=== PATIENT | male | born 1960 | race Caucasian/White ===

== ENCOUNTER 2018-12-14 04:32 | Inpatient (IN) | payer OTHER, MEDICAID ==
[2018-12-14 05:04] LABS: ADD MAN DIFF? NO
[2018-12-14 05:06] LABS: WHITE BLOOD COUNT 19.2 10^3/ul (4.8-10.8)
[2018-12-14 05:06] LABS: ABNORMAL IP MESSAGE 1; BASOPHIL # 0.1 10^3/ul (0.0-0.1); BASOPHILS % 0.4 % (0.0-2.0); EOSINOPHILS # 0.1 10^3/ul (0.0-0.5); EOSINOPHILS % 0.6 % (0.0-7.0); HEMATOCRIT 21.8 % (42.0-52.0); HEMOGLOBIN 7.3 g/dl (14.0-18.0); LYMPHOCYTES # 4.7 10^3/ul (0.8-2.9); LYMPHOCYTES % 24.4 % (15.0-51.0); MEAN CORPUSCULAR HEMOGLOBIN 32.6 pg (29.0-33.0); MEAN CORPUSCULAR HGB CONC 33.5 g/dl (32.0-37.0); MEAN CORPUSCULAR VOLUME 97.3 fl (82.0-101.0); MEAN PLATELET VOLUME 12.6 fl (7.4-10.4); MONOCYTE # 1.8 10^3/ul (0.3-0.9); MONOCYTES % 9.5 % (0.0-11.0); NEUTROPHIL # 12.3 10^3/ul (1.6-7.5); NEUTROPHILS % 64.1 % (39.0-77.0); PLATELET COUNT 73 10^3/UL (140-415); POSITIVE DIFF @See below; RED BLOOD COUNT 2.24 10^6/ul (4.70-6.10); RED CELL DISTRIBUTION WIDTH 17.2 % (11.5-14.5)
[2018-12-14] MEDS: CEFTRIAXONE 1 GM/50 ML (PMX) 50 ML IVPB (05:07)
[2018-12-14] MEDS: SOD CHLORIDE 0.9% 500 ML IV (05:07)
[2018-12-14 05:23] LABS: ALANINE AMINOTRANSFERASE 40 IU/L (13-69); ALBUMIN 2.7 g/dl (3.3-4.9); ALBUMIN/GLOBULIN RATIO 0.87; ALKALINE PHOSPHATASE 85 IU/L (42-121); ANION GAP 13 (5-13); ASPARTATE AMINO TRANSFERASE 55 IU/L (15-46); BILIRUBIN,INDIRECT 4.5 mg/dl (0-1.1); BILIRUBIN,TOTAL 4.5 mg/dl (0.2-1.3); BLOOD UREA NITROGEN 25 mg/dl (7-20); CALCIUM 8.4 mg/dl (8.4-10.2); CARBON DIOXIDE 18 mmol/L (21-31); CHLORIDE 113 mmol/L (97-110); CREATININE 0.89 mg/dl (0.61-1.24); Estimated GFR > 60 mL/min (>60); GLUCOSE 124 mg/dl (70-220); POTASSIUM 3.3 mmol/L (3.5-5.1); SODIUM 144 mmol/L (135-144); TOTAL PROTEIN 5.8 g/dl (6.1-8.1)
[2018-12-14 05:25] LABS: INR 2.52; PROTIME 27.2 Sec (11.9-14.9); PT RATIO 2.1
[2018-12-14 05:26] LABS: PARTIAL THROMBOPLASTIN TIME 43.8 Sec (23.0-35.0)
[2018-12-14] MEDS: PHYTONADIONE 10 MG in DEXTROSE 5% 50 ML IVPB (05:30)
[2018-12-14] MEDS ORDERED: ACETAMINOPHEN 325 MG TAB PO (05:30)
[2018-12-14] MEDS ORDERED: PANTOPRAZOLE IV 80 MG in SOD CHLORIDE 0.9% 100 ML IV (05:30)
[2018-12-14 05:35] LABS: TROPONIN-I 0.072 ng/ml (0.000-0.120)
[2018-12-14] MEDS: OCTREOTIDE 50 MCG in SOD CHLORIDE 0.9% 25 ML IVPB (05:49)
[2018-12-14] MEDS: PANTOPRAZOLE IV 80 MG in SOD CHLORIDE 0.9% 100 ML IVPB (05:49)
[2018-12-14] MEDS: ONDANSETRON 4 MG INJ IV (06:02)
[2018-12-14] MEDS: PANTOPRAZOLE IV 80 MG in SOD CHLORIDE 0.9% 100 ML IV (06:11)
[2018-12-14] MEDS: OCTREOTIDE 500 MCG in SOD CHLORIDE 0.9% 49 ML IV (06:12)
[2018-12-14 06:28] LABS: HAAIG REFLEX REFLEX FILED
[2018-12-14 06:37] LABS: ETHANOL < 10.0 mg/dl (0-0)
[2018-12-14 07:35] LABS: HEPATITIS B SURFACE ANTIBODY NEGATIVE (NEGATIVE)
[2018-12-14 08:44] LABS: HEPATITIS B SURFACE ANTIGEN NEGATIVE (NEGATIVE)
[2018-12-14 08:47] LABS: ABNORMAL IP MESSAGE 1; HEMATOCRIT 18.8 % (42.0-52.0); MEAN CORPUSCULAR HGB CONC 33.5 g/dl (32.0-37.0); MEAN CORPUSCULAR VOLUME 95.4 fl (82.0-101.0); POSITIVE DIFF @See below; RED BLOOD COUNT 1.97 10^6/ul (4.70-6.10); RED CELL DISTRIBUTION WIDTH 17.3 % (11.5-14.5)
[2018-12-14 09:01] LABS: HEPATITIS C VIRAL ANTIBODY NEGATIVE (NEGATIVE)
[2018-12-14 09:17] LABS: ADD MAN DIFF? YES; HEMOGLOBIN 6.3 g/dl (14.0-18.0); PLATELET COUNT 33 10^3/UL (140-415)
[2018-12-14 09:18] LABS: PATH REVIEW? YES
[2018-12-14 09:49] LABS: ANISOCYTOSIS 1+ (0-0); BAND NEUTROPHILS #M 0.4 10^3/ul (0.0-0.6); BAND NEUTROPHILS % (M) 4 % (0-4); GIANT THROMBO% (M) 1 % (0-0); LYMPHOCYTES #M 0.2 10^3/ul (0.8-2.9); LYMPHOCYTES % (M) 2 % (15-51); MONOCYTE #M 0.7 10^3/ul (0.3-0.9); MONOCYTES % (M) 6 % (0-11); MYELOCYTES #M 0.1 10^3/ul (0.0-0.0); MYELOCYTES % (M) 1 % (0-0); PLATELET ESTIMATE DECREASED; PLATELET MORPHOLOGY COMMENT @See below; POLYCHROMASIA 1+ (0-0); SEG NEUT #M 10.4 10^3/ul (1.6-7.5); SEGMENTED NEUTROPHILS (M) % 87 % (39-77); SMUDGE%M 10 % (0-0)
[2018-12-14 10:05] LABS: HEPATITIS B CORE ANTIBODY NEGATIVE (NEGATIVE)
[2018-12-14] MEDS: PROPOFOL 20 ML (12:17)
[2018-12-14] MEDS: LIDOCAINE 2% (SDV) 5 ML INJ (12:17)
[2018-12-14] MEDS ORDERED: FENTAnyl 50 MCG/ML VIAL IV (12:30)
[2018-12-14] MEDS ORDERED: DIPHENHYDRAMINE 50 MG INJ IV (12:30)
[2018-12-14] MEDS ORDERED: ACETAMINOPHEN 500 MG TAB PO (12:30)
[2018-12-14] MEDS ORDERED: LABETALOL HCL 20MG INJ IV (12:30)
[2018-12-14] MEDS ORDERED: ALBUTEROL 0.083% (NEB) 2.5 MG/3 ML AMP HHN (12:30)
[2018-12-14] MEDS ORDERED: ONDANSETRON 4 MG INJ IV (12:30)
[2018-12-14 15:49] LABS: WHITE BLOOD COUNT 8.7 10^3/ul (4.8-10.8)
[2018-12-14 15:50] LABS: ABNORMAL IP MESSAGE 1; HEMATOCRIT 21.5 % (42.0-52.0); HEMOGLOBIN 7.3 g/dl (14.0-18.0); MEAN CORPUSCULAR HEMOGLOBIN 32.9 pg (29.0-33.0); MEAN CORPUSCULAR VOLUME 96.8 fl (82.0-101.0); MEAN PLATELET VOLUME 13.2 fl (7.4-10.4); POSITIVE DIFF @See below; RED BLOOD COUNT 2.22 10^6/ul (4.70-6.10); RED CELL DISTRIBUTION WIDTH 16.8 % (11.5-14.5)
[2018-12-14 15:58] LABS: PLATELET COUNT 36 10^3/UL (140-415)
[2018-12-14 15:59] LABS: ADD MAN DIFF? YES
[2018-12-14] MEDS: POTASSIUM CHLORIDE 100 ML IVPB (16:31)
[2018-12-14 16:49] LABS: WHITE BLOOD COUNT 11.9 10^3/ul (4.8-10.8)
[2018-12-14] MEDS: SUCRALFATE 1 GM TAB PO ×2 (17:00→21:00)
[2018-12-14 17:14] LABS: ANISOCYTOSIS 1+ (0-0); BAND NEUTROPHILS #M 0.2 10^3/ul (0.0-0.6); BAND NEUTROPHILS % (M) 3 % (0-4); BURR CELLS 1+ (0-0); ERYTHROBLAST% (NRBC) (M) 1 % (0-0); GIANT THROMBO% (M) 1 % (0-0); LYMPHOCYTES #M 0.8 10^3/ul (0.8-2.9); LYMPHOCYTES % (M) 10 % (15-51); MICROCYTOSIS 1+ (0-0); MONOCYTE #M 0.2 10^3/ul (0.3-0.9); MONOCYTES % (M) 3 % (0-11); PLATELET ESTIMATE SIG DECREASED; POIKILOCYTOSIS 1+ (0-0); POLYCHROMASIA 1+ (0-0); SEG NEUT #M 7.3 10^3/ul (1.6-7.5); SEGMENTED NEUTROPHILS (M) % 84 % (39-77); SMUDGE%M 49 % (0-0)
[2018-12-14] MEDS: PANTOPRAZOLE (EC) 40 MG TAB PO (18:00)
[2018-12-14 22:35] LABS: TYPE AND SCREEN 1
[2018-12-14 22:51] LABS: ADD MAN DIFF? NO
[2018-12-14 22:55] LABS: WHITE BLOOD COUNT 5.7 10^3/ul (4.8-10.8)
[2018-12-14 22:55] LABS: ABNORMAL IP MESSAGE 1; BASOPHILS % 0.3 % (0.0-2.0); EOSINOPHILS % 0.5 % (0.0-7.0); HEMATOCRIT 17.7 % (42.0-52.0); LYMPHOCYTES # 1.1 10^3/ul (0.8-2.9); LYMPHOCYTES % 19.7 % (15.0-51.0); MEAN CORPUSCULAR HEMOGLOBIN 32.8 pg (29.0-33.0); MEAN CORPUSCULAR HGB CONC 33.9 g/dl (32.0-37.0); MEAN CORPUSCULAR VOLUME 96.7 fl (82.0-101.0); MEAN PLATELET VOLUME 12.6 fl (7.4-10.4); MONOCYTE # 0.4 10^3/ul (0.3-0.9); MONOCYTES % 7.5 % (0.0-11.0); NEUTROPHIL # 4.1 10^3/ul (1.6-7.5); NEUTROPHILS % 71.3 % (39.0-77.0); PLATELET COUNT 39 10^3/UL (140-415); POSITIVE DIFF @See below; RED BLOOD COUNT 1.83 10^6/ul (4.70-6.10); RED CELL DISTRIBUTION WIDTH 17.2 % (11.5-14.5)
[2018-12-15 01:53] LABS: IMMEDIATE SPIN CROSSMATCH 1
[2018-12-15 07:52] LABS: ADD MAN DIFF? NO
[2018-12-15 08:18] LABS: INR 1.91; PT RATIO 1.7
[2018-12-15 08:19] LABS: PARTIAL THROMBOPLASTIN TIME 38.3 Sec (23.0-35.0)
[2018-12-15 08:33] LABS: ANION GAP 3 (5-13); BLOOD UREA NITROGEN 25 mg/dl (7-20); CALCIUM 8.2 mg/dl (8.4-10.2); CARBON DIOXIDE 26 mmol/L (21-31); CHLORIDE 118 mmol/L (97-110); CREATININE 0.92 mg/dl (0.61-1.24); Estimated GFR > 60 mL/min (>60); GLUCOSE 94 mg/dl (70-220); POTASSIUM 3.8 mmol/L (3.5-5.1); SODIUM 147 mmol/L (135-144)
[2018-12-15] MEDS: PANTOPRAZOLE (EC) 40 MG TAB PO ×2 (08:41→16:45)
[2018-12-15] MEDS: SUCRALFATE 1 GM TAB PO ×4 (08:41→21:13)
[2018-12-15 09:09] LABS: WHITE BLOOD COUNT 3.9 10^3/ul (4.8-10.8)
[2018-12-15 09:09] LABS: ABNORMAL IP MESSAGE 1; BASOPHILS % 0.3 % (0.0-2.0); EOSINOPHILS # 0.1 10^3/ul (0.0-0.5); EOSINOPHILS % 1.6 % (0.0-7.0); HEMATOCRIT 20.1 % (42.0-52.0); LYMPHOCYTES # 0.9 10^3/ul (0.8-2.9); LYMPHOCYTES % 22.7 % (15.0-51.0); MEAN CORPUSCULAR HEMOGLOBIN 32.2 pg (29.0-33.0); MEAN CORPUSCULAR HGB CONC 33.8 g/dl (32.0-37.0); MEAN CORPUSCULAR VOLUME 95.3 fl (82.0-101.0); MEAN PLATELET VOLUME 12.5 fl (7.4-10.4); MONOCYTE # 0.3 10^3/ul (0.3-0.9); MONOCYTES % 8.5 % (0.0-11.0); NEUTROPHIL # 2.6 10^3/ul (1.6-7.5); NEUTROPHILS % 66.1 % (39.0-77.0); PLATELET COUNT 46 10^3/UL (140-415); POSITIVE DIFF @See below; RED BLOOD COUNT 2.11 10^6/ul (4.70-6.10); RED CELL DISTRIBUTION WIDTH 16.7 % (11.5-14.5)
[2018-12-15 09:20] LABS: HEMOGLOBIN 6.8 g/dl (14.0-18.0); PATH REVIEW? YES
[2018-12-15 09:26] LABS: CANNABINOIDS Negative (NEGATIVE)
[2018-12-15 10:25] LABS: AMPHETAMINE/METHAMPHETAMINE NEGATIVE (NEGATIVE); BARBITURATES NEGATIVE (NEGATIVE); BENZODIAZEPINES NEGATIVE (NEGATIVE); COCAINE NEGATIVE (NEGATIVE); OPIATES NEGATIVE (NEGATIVE)
[2018-12-15 10:32] LABS: ANISOCYTOSIS 1+ (0-0); BAND NEUTROPHILS #M 0.2 10^3/ul (0.0-0.6); BAND NEUTROPHILS % (M) 7 % (0-4); GIANT THROMBO% (M) 3 % (0-0); LYMPHOCYTES #M 0.5 10^3/ul (0.8-2.9); LYMPHOCYTES % (M) 15 % (15-51); MONOCYTE #M 0.1 10^3/ul (0.3-0.9); MONOCYTES % (M) 5 % (0-11); PLATELET ESTIMATE SIG DECREASED; POIKILOCYTOSIS 1+ (0-0); POLYCHROMASIA 1+ (0-0); SEG NEUT #M 2.9 10^3/ul (1.6-7.5); SEGMENTED NEUTROPHILS (M) % 73 % (39-77); SMUDGE%M 9 % (0-0)
[2018-12-15] MEDS: OCTREOTIDE 1 MG in DEXTROSE 5% 95 ML IV ×2 (16:38→21:30)
[2018-12-15 18:16] LABS: HEMATOCRIT 24.4 % (42.0-52.0); HEMOGLOBIN 8.2 g/dl (14.0-18.0)
[2018-12-15] MEDS: PEG/ELECTROLYTES 4L BTL PO (19:09)
[2018-12-15 23:14] LABS: IMMEDIATE SPIN CROSSMATCH 1 3
[2018-12-16] MEDS: PANTOPRAZOLE (EC) 40 MG TAB PO ×2 (06:00→17:53)
[2018-12-16 07:18] LABS: ADD MAN DIFF? NO
[2018-12-16 07:22] LABS: ABNORMAL IP MESSAGE 1; BASOPHILS % 0.3 % (0.0-2.0); EOSINOPHILS # 0.1 10^3/ul (0.0-0.5); EOSINOPHILS % 2.7 % (0.0-7.0); HEMATOCRIT 22.2 % (42.0-52.0); HEMOGLOBIN 7.6 g/dl (14.0-18.0); LYMPHOCYTES # 0.8 10^3/ul (0.8-2.9); LYMPHOCYTES % 26.4 % (15.0-51.0); MEAN CORPUSCULAR HEMOGLOBIN 31.8 pg (29.0-33.0); MEAN CORPUSCULAR HGB CONC 34.2 g/dl (32.0-37.0); MEAN CORPUSCULAR VOLUME 92.9 fl (82.0-101.0); MEAN PLATELET VOLUME 12.9 fl (7.4-10.4); MONOCYTE # 0.3 10^3/ul (0.3-0.9); MONOCYTES % 9.5 % (0.0-11.0); NEUTROPHIL # 1.8 10^3/ul (1.6-7.5); NEUTROPHILS % 60.4 % (39.0-77.0); NUCLEATED RED BLOOD CELLS% 0.7 /100WBC (0.0-0.0); POSITIVE DIFF @See below; RED BLOOD COUNT 2.39 10^6/ul (4.70-6.10); RED CELL DISTRIBUTION WIDTH 17.3 % (11.5-14.5)
[2018-12-16] MEDS: SUCRALFATE 1 GM TAB PO ×4 (07:24→21:10)
[2018-12-16 07:27] LABS: PLATELET COUNT 33 10^3/UL (140-415)
[2018-12-16 07:51] LABS: ANION GAP 4 (5-13); BLOOD UREA NITROGEN 17 mg/dl (7-20); CALCIUM 8.4 mg/dl (8.4-10.2); CARBON DIOXIDE 26 mmol/L (21-31); CHLORIDE 114 mmol/L (97-110); CREATININE 0.92 mg/dl (0.61-1.24); Estimated GFR > 60 mL/min (>60); GLUCOSE 90 mg/dl (70-220); POTASSIUM 3.6 mmol/L (3.5-5.1); SODIUM 144 mmol/L (135-144)
[2018-12-16] MEDS: LIDOCAINE 100 MG SYRINGE (12:16)
[2018-12-16] MEDS: PROPOFOL 40 ML (12:16)
[2018-12-16] MEDS: SOD FERRIC GLUC COMPLX 125 MG in SOD CHLORIDE 0.9% 100 ML IVPB (15:35)
[2018-12-16] MEDS: OCTREOTIDE 1 MG in DEXTROSE 5% 95 ML IV (17:53)
[2018-12-17] MEDS: PANTOPRAZOLE (EC) 40 MG TAB PO (06:12)
[2018-12-17 06:45] LABS: ABNORMAL IP MESSAGE 1; HEMATOCRIT 22.4 % (42.0-52.0); HEMOGLOBIN 7.6 g/dl (14.0-18.0); MEAN CORPUSCULAR HEMOGLOBIN 32.1 pg (29.0-33.0); MEAN CORPUSCULAR HGB CONC 33.9 g/dl (32.0-37.0); MEAN CORPUSCULAR VOLUME 94.5 fl (82.0-101.0); POSITIVE DIFF @See below; RED BLOOD COUNT 2.37 10^6/ul (4.70-6.10); RED CELL DISTRIBUTION WIDTH 17.3 % (11.5-14.5)
[2018-12-17 06:45] LABS: WHITE BLOOD COUNT 2.8 10^3/ul (4.8-10.8)
[2018-12-17 06:54] LABS: ADD MAN DIFF? YES; PLATELET COUNT 28 10^3/UL (140-415)
[2018-12-17 07:07] LABS: ANION GAP 4 (5-13); BLOOD UREA NITROGEN 13 mg/dl (7-20); CALCIUM 8.1 mg/dl (8.4-10.2); CARBON DIOXIDE 25 mmol/L (21-31); CHLORIDE 112 mmol/L (97-110); CREATININE 0.92 mg/dl (0.61-1.24); Estimated GFR > 60 mL/min (>60); GLUCOSE 117 mg/dl (70-220); POTASSIUM 3.7 mmol/L (3.5-5.1); SODIUM 141 mmol/L (135-144)
[2018-12-17] MEDS: SUCRALFATE 1 GM TAB PO ×2 (08:48→13:30)
[2018-12-17 09:15] LABS: ANISOCYTOSIS 1+ (0-0); BAND NEUTROPHILS #M 0.1 10^3/ul (0.0-0.6); BAND NEUTROPHILS % (M) 5 % (0-4); EOSINOPHILS % (M) 8 % (0-7); GIANT THROMBO% (M) 14 % (0-0); LYMPHOCYTES #M 0.6 10^3/ul (0.8-2.9); LYMPHOCYTES % (M) 22 % (15-51); MONOCYTE #M 0.1 10^3/ul (0.3-0.9); MONOCYTES % (M) 6 % (0-11); PLATELET ESTIMATE SIG DECREASED; POIKILOCYTOSIS 1+ (0-0); SEG NEUT #M 1.7 10^3/ul (1.6-7.5); SEGMENTED NEUTROPHILS (M) % 59 % (39-77); SMUDGE%M 21 % (0-0)
[2018-12-17 12:02] LABS: ADD MAN DIFF? NO
[2018-12-17 12:11] LABS: WHITE BLOOD COUNT 3.1 10^3/ul (4.8-10.8)
[2018-12-17 12:11] LABS: EOSINOPHILS % 3.2 % (0.0-7.0); HEMATOCRIT 23.1 % (42.0-52.0); HEMOGLOBIN 7.7 g/dl (14.0-18.0); LYMPHOCYTES % 23.2 % (15.0-51.0); MEAN CORPUSCULAR HEMOGLOBIN 31.8 pg (29.0-33.0); MEAN CORPUSCULAR HGB CONC 33.3 g/dl (32.0-37.0); MEAN CORPUSCULAR VOLUME 95.5 fl (82.0-101.0); MEAN PLATELET VOLUME 12.3 fl (7.4-10.4); NEUTROPHILS % 61.7 % (39.0-77.0); PLATELET COUNT 38 10^3/UL (140-415); RED BLOOD COUNT 2.42 10^6/ul (4.70-6.10); RED CELL DISTRIBUTION WIDTH 17.4 % (11.5-14.5)
[2018-12-17 12:12] LABS: ABNORMAL IP MESSAGE 1; BASOPHILS % 0.3 % (0.0-2.0); EOSINOPHILS # 0.1 10^3/ul (0.0-0.5); LYMPHOCYTES # 0.7 10^3/ul (0.8-2.9); MONOCYTE # 0.3 10^3/ul (0.3-0.9); NEUTROPHIL # 1.9 10^3/ul (1.6-7.5); POSITIVE DIFF @See below
[2018-12-17] MEDS: SOD FERRIC GLUC COMPLX 125 MG in SOD CHLORIDE 0.9% 100 ML IVPB (13:30)
[2018-12-17] MEDS: OCTREOTIDE 1 MG in DEXTROSE 5% 95 ML IV (14:00)
[2018-12-18 12:56] LABS: ALPHA FETOPROTEIN 3.49 IU/L (0.00-7.21)
== END 2018-12-17 16:47 | disposition home or self-care (01) | DRG 378 ==
LOC: E/R 04:32 → TEL 05:26
PROVIDERS: Family Medicine
PROC: 0DJ08ZZ Inspection of Upper Intestinal Tract, Via Natural or Artificial Opening Endoscopic (ICD-10-PCS; 2018-12-14 11:30)
PROC: 0DJD8ZZ Inspection of Lower Intestinal Tract, Via Natural or Artificial Opening Endoscopic (ICD-10-PCS; principal; 2018-12-14 11:37)
PROC: 30233K1 Transfusion of Nonautologous Frozen Plasma into Peripheral Vein, Percutaneous Approach (ICD-10-PCS; 2018-12-14 11:37)
PROC: 30233K1 Transfusion of Nonautologous Frozen Plasma into Peripheral Vein, Percutaneous Approach (ICD-10-PCS; 2018-12-14 11:37)
PROC: 30233R1 Transfusion of Nonautologous Platelets into Peripheral Vein, Percutaneous Approach (ICD-10-PCS; 2018-12-14 11:37)
PROC: 30233N1 Transfusion of Nonautologous Red Blood Cells into Peripheral Vein, Percutaneous Approach (ICD-10-PCS; 2018-12-14 11:37)
PROC: 30233N1 Transfusion of Nonautologous Red Blood Cells into Peripheral Vein, Percutaneous Approach (ICD-10-PCS; 2018-12-14 11:37)
DX: K29.71 Gastritis, unspecified, with bleeding (principal); E87.2 Acidosis; D62 Acute posthemorrhagic anemia; D61.818 Other pancytopenia; D69.6 Thrombocytopenia, unspecified; K70.30 Alcoholic cirrhosis of liver without ascites; I10 Essential (primary) hypertension; D64.9 Anemia, unspecified; K64.9 Unspecified hemorrhoids; F10.10 Alcohol abuse, uncomplicated; Y90.0 Blood alcohol level of less than 20 mg/100 ml; Z72.89 Other problems related to lifestyle
CPT/HCPCS: 36430; 71045; 74176; 76705; 80048; 80053; 80307; 82105; 84484; 85014; 85018; 85025; 85610; 85730; 86644; 86704; 86706; 86709; 86803; 86850; 86900; 86901; 86920; 86945; 87340; 93005